=== PATIENT | male | born 1945 | race Caucasian/White ===

== ENCOUNTER 2019-07-23 00:07 | Inpatient (IN) | payer MEDICARE, OTHER ==
[~2019-07-23] VITALS: Ht 177.8 cm; Wt 79.4 kg
[2019-07-23] VITALS (66 sets, daily range): BP systolic 71–142; BP diastolic 43–80
--- NOTE | 2019-07-23 00:07 | NUR ---
Respiratory Therapist at bedside for respiratory intervention.
--- NOTE | 2019-07-23 00:07 | NUR ---
PT [facility]. TAKEN TO BED 1
--- NOTE | 2019-07-23 00:10 | NUR ---
PT CAME IN TO ER WITH C/O SOB/ RESPRIATORY DISTRESS. PER EMS. EMS HAD PT ON BPAP IN ROUTE SATURATION AT 80 PERCENT. PT WAS NOT ABLE TO ANSWER QUESTIONS, RESPONDS TO PAIN. PT HAS A HX COPD. PER EMS, PT HAD AN ON GOING COUGH. NO FEVER AT THIS TIME, 98.7 RECTAL. PER EMS, PT LOSS ALL BOWEL CONTROL IN ROUTE. ERMD MADE AWARE OF STATUS, SAFETY MEASURES IN PLACE, ISOLATION PRECAUTIONS IN PLACE. WILL CONTINUE TO MONITOR.
[2019-07-23] MEDS ORDERED: INTUBATION KIT MC ONE (00:13)
[2019-07-23] MEDS ORDERED: PROPOFOL 1000 MG/100 ML PREMIX 100 ML IV ONE ×2 (00:17→03:20)
--- NOTE | 2019-07-23 00:30 | NUR ---
Dr. Toth speaking with patient son in [facility].
--- NOTE | 2019-07-23 00:40 | NUR ---
PT INTUBATED BY ERMD, RT, RN AND EMT ASSIST. PT VSS.
[2019-07-23] MEDS ORDERED: MAG SULF 2000 MG/WATER PREMIX 50 ML IV ONE (00:45)
[2019-07-23] MEDS ORDERED: LEVOFLOXACIN 750 MG/D5W PREMIX 150 ML IV ONE (00:45)
[2019-07-23] MEDS ORDERED: NACL 0.9% 2,500 ML IV ONE (00:45)
[2019-07-23] MEDS ORDERED: ETOMIDATE 20 MG/10 ML VIAL IVP ONE (00:45)
[2019-07-23] MEDS ORDERED: methylPREDNISolone SS 125 MG in WATER STERILE 2 ML IV ONE (00:45)
--- NOTE | 2019-07-23 01:10 | NUR ---
URINE AND BLOOD SPECIMENS DONE. FLU SWAB DONE. SENT TO LAB
[2019-07-23] MEDS ORDERED: WATER STERILE 10 ML MC ONE (01:11)
[2019-07-23] MEDS ORDERED: methylPREDNISolone SS 125 MG/2 ML VIAL ONE (01:11)
[2019-07-23 01:14] LABS: BASOPHILS # (AUTO) 0.1 K/uL (0.00-0.22); BASOPHILS % (AUTO) 0.6 % (0.0-2.0); EOSINOPHILS # (AUTO) 0.8 K/uL (0-0.4); EOSINOPHILS % (AUTO) 4.9 % (0.0-4.0); HEMATOCRIT 46.8 % (36-52); HEMOGLOBIN 15.4 g/dL (12.0-18.0); LYMPHOCYTES # (AUTO) 6.3 K/uL (2.0-11.5); LYMPHOCYTES % (AUTO) 41.2 % (20.5-51.1); MEAN CORPUSCULAR HEMOGLOBIN 31 pg (27-31); MEAN CORPUSCULAR HGB CONC 33 g/dL (33-37); MEAN CORPUSCULAR VOLUME 94.8 fL (80-94); MONOCYTES # (AUTO) 0.9 K/uL (0.8-1.0); MONOCYTES % (AUTO) 5.7 % (1.7-9.3); NEUTROPHILS # (AUTO) 7.2 K/uL (1.8-7.7); NEUTROPHILS % (AUTO) 47.6 % (42.2-75.2); PLATELET COUNT (AUTO) 266 K/uL (140-450); RED BLOOD CELL COUNT(AUTO) 4.94 MIL/uL (4.20-6.10); RED CELL DISTRIBUTION WIDTH 13.4 % (11.6-13.7); WHITE BLOOD COUNT (AUTO) 15.3 K/uL (4.8-10.8)
[2019-07-23 01:15] LABS: APPEARANCE,URINE CLEAR (CLEAR); BILIRUBIN,URINE NEGATIVE (NEGATIVE); BLOOD, URINE NEGATIVE (NEGATIVE); COLOR,URINE YELLOW (YELLOW); LEUKOCYTE ESTERASE ,URINE NEGATIVE (NEGATIVE); NITRITE, URINE POSITIVE (NEGATIVE); PH,URINE 6.5 (5.0-9.0); UGLUCOSE 1+ (NEGATIVE)
[2019-07-23] MEDS ORDERED: HYDROXYCHLOROQUINE 200 MG TAB PO ONE (01:25)
[2019-07-23] MEDS ORDERED: AZITHROMYCIN 500 MG in DEXTROSE 5% 250 ML IV ONE (01:25)
[2019-07-23 01:29] LABS: ALBUMIN 3.4 g/dL (3.4-5.0); ANION GAP 17.4 (8-16); ASPARTATE AMINOTRANSFERASE 61 U/L (15-37); CARBON DIOXIDE 24.1 mmol/L (21-32); CHLORIDE 106 mmol/L (98-107); CREATININE 1.5 mg/dL (0.6-1.3); GLUCOSE 238 mg/dL (74-106); POTASSIUM 3.5 mmol/L (3.5-5.1); SODIUM SERUM 144 mmol/L (136-145); TOTAL BILIRUBIN 0.4 mg/dL (0.0-1.0); UREA NITROGEN, BLOOD 14 mg/dL (7-18)
[2019-07-23 01:34] LABS: PROTHROMBIN TIME 10.2 secs (10.8-13.4)
[2019-07-23 01:35] LABS: RBC,URINE 0-5 /HPF (0-5); WBC,URINE 0-5 /HPF (0-5)
--- NOTE | 2019-07-23 02:28 | NUR ---
SPOKE TO MOSHE, SON OF PT, CONTACT INFO IS [phone]
[2019-07-23] MEDS ORDERED: AZITHROMYCIN 500 MG INJ VIAL IV ONE (03:00)
--- NOTE | 2019-07-23 03:20 | NUR ---
NGT INSERTED TO RIGHT NARE, AIR CHECK CONFIRMED, XRAY TO CONFIRM PLACEMENT. ERMD, AT BEDSIDE, CONFIRMED OK TO USE. ORDERED PO MEDS GIVEN. PT TOLERATED WELL, NO ADVERSE REACTIONS.
[2019-07-23] MEDS ORDERED: ACETAMINOPHEN 325 MG TAB PO PRN (03:45)
[2019-07-23] MEDS ORDERED: MORPHINE SULFATE 2 MG/ML SYR IVP PRN (03:45)
[2019-07-23] MEDS ORDERED: DOCUSATE SODIUM 100 MG GELCAP PO PRN (03:45)
[2019-07-23] MEDS ORDERED: ONDANSETRON 4 MG/2 ML VIAL IM/IVP PRN (03:45)
[2019-07-23] MEDS ORDERED: PROPOFOL 200 MG/20 ML VIAL IV ONE ×2 (03:55→04:00)
[2019-07-23] MEDS ORDERED: NACL 0.9% 1,500 ML IV ONE (04:00)
--- NOTE | 2019-07-23 04:20 | NUR ---
PT WAS SWABED FOR COVID, SENT TO LAB
[2019-07-23] MEDS ORDERED: NOREPINEPHRINE 4 MG/4 ML VIAL IV ONE (04:27)
[2019-07-23] MEDS ORDERED: DEXTROSE 50% 50 ML SYR IVP PRN (04:30)
--- NOTE | 2019-07-23 04:39 | NUR ---
Dr. Toth at patient bedside.
--- NOTE | 2019-07-23 04:42 | NUR ---
LAB DRAWN FOR LACTIC ACID, PTS BLOOD PRESSURE STARTING TO DECREASE. CHANGED CUFF, CHANGED SITE, BP STILL LOW. 2L IV BOLUS INFUSING, UNABLE TO READ SATURATIONS.ER MD AWARE, LEVOPHED PRESSOR STARTED. ERMD AT BEDSIDE TO START CENTRAL LINE INSERTION. PROPOFOL AND LEVOPHED INFUSING, ETT TO VENT, SATURATIONS 100%. ATTEMPTED CENTRAL LINE 2X, EXCESS ATHERSCELOROSIS, SUCCESSFULLY INSERTED @ RIGHT SUBCLAVIAN. GOOD BLOOD RETURN AT BROWN [place] ONLY, OTHER LUMENS ABLE TO FLUSH. XRAY AT BEDSIDE TO CONFIRM PLACEMENT, ERMD TO EXAMINE, CONFIRMED OK TO USE BROWN [place] ONLY. ALL SAFETY PRECAUTIONS MET THROUGHOUT PROCEDURES, PT TOLERATED WELL. HOB 30 DEGREES, SIDERAILS UPx2, BED LOCKED AND IN LOWEST POSITION. CONNECTED TO MONITOR. BP STABLE, HR-ST.
[2019-07-23 04:53] LABS: CHOL/HDL RATIO 4.2 (1-4.5); MAGNESIUM 2.4 mg/dL (1.8-2.4); PHOSPHORUS 6.3 mg/dL (2.5-4.9); THYROID STIMULATING HORMONE 3.81 uIU/mL (0.34-3.74)
--- NOTE | 2019-07-23 05:05 | NUR ---
DARREN FROM LAB CALLED, ABNORMAL TROPONIN 0.082. DR. CARUSO MADE AWARE
--- NOTE | 2019-07-23 05:30 | NUR ---
COVID SWAB COLLECTED AND SENT TO LAB.
--- NOTE | 2019-07-23 06:20 | NUR ---
Patient will be admitted to care of CUSTOMER RESPONSE REPRESENTATIVE . Admitted to ICU with .Will go to room ICU 1. Belongings list completed. Report to NIYAH MOSER. PT ON LEVOPHED DRIP, AND PROPOFOL, RASS -3. DRY WEIGHT USED 90KG. BLOOD PRESSURE STABLE-111/67, ST ON MONITOR-HR 115 BPM, RR 20, SATURATIONS 100%. ETT TO VENT ACVC 12, FI02 80%, TV 450, PEEP 5. HALE IN PLACE, CENTRAL LINE TO RIGHT SUBCLAVIAN, NGT TO RIGHT NARE, CLAMPED. ALL SAFETY MEASURES IN PLACE. TRANSFERRED WITH RT AND AMBUBAG AND 2 RN's. TRANSFERRED TO ICU BED 1 WITHOUT INCIDENT.
[2019-07-23] MEDS ORDERED: ALBUTEROL HFA MDI 90 MCG/ACTUATION 8 GM INH PRN (06:30)
--- NOTE | 2019-07-23 06:30 | NUR ---
PT ADMITTED FROM ER, SEDATED, WITH ETT TO VENT, NO SIGNS OF ACUTE DISTRESS, SKIN IS INTACT WARM AND DRY, HALE CATHETER INTACT AND PATENT WITH CLEAR YELLOW URINE, NGT IN PLACE, NOTED RIGHT UPPER CHEST CENTRAL LINE WITH 2 PERIPHERAL LINES ON BILATERAL ARMS. PT ON PROPOFOL DRIP AND LEVOPHED DRIP ORDERED. TURNED AND REPOSITION, SAFETY AND AIRBORNE PRECAUTIONS MAINTAINED. CALL LIGHT WITHIN REACH.
[2019-07-23] MEDS ORDERED: ASPI-1822 PO (07:21)
[2019-07-23] MEDS ORDERED: NOV7030 SUBQ (07:21)
[2019-07-23] MEDS ORDERED: METF500T2 PO (07:21)
[2019-07-23] MEDS ORDERED: [UNRECOGNIZED DRUG - CODE] PO (07:21)
[2019-07-23] MEDS ORDERED: ERGO400T3 PO (07:21)
[2019-07-23] MEDS ORDERED: PSYL660P5 PO (07:21)
--- NOTE | 2019-07-23 07:26 | NUR ---
ENDORSED TO ONCOMING DAY SHIFT NURSE ANTOINETTE LINDER FOR CONTINUITY OF CARE.
[2019-07-23] MEDS ORDERED: BUDESONIDE 0.5 MG/2 ML NEBU INH SCH (07:30)
[2019-07-23] MEDS: BLOOD GLUCOSE MONITORING 1 DEV DEV FS SCH ×4 (07:30→21:10)
--- NOTE | 2019-07-23 07:30 | NUR ---
RECEIVED REPORT FROM APPRENTICE LINEMAN THIRD STEP RN. PT IS SEDATED, RASS -3, AFEBRILE. SINUS TACHYCARDIA ON MONITOR. S1 S2 HEARD. ETT TO VENT A/V VC FIO2 60%, VT 450, RR 12, PEEP 5. BREATHING EVEN AND UNLABORED. NGT IN PLACE, PLACEMENT CONFIRMED. ABDOMEN SOFT, NONTENDER, WITH ACTIVE BOWEL SOUNDS. CENTRAL LINE TO RIGHT SUBCLAVIAN, PERIPHERAL IVS G 20 TO LEFT AND RIGHT FOREARM IN PLACE, RUNNING PROPOFOL DRIP AT 35 MCG/KG/MIN, LEVOPHED AT 12 MCG/MIN. DRY WEIGHT [address] IN PL[address] DRAINING YELLOW URINE TO GRAVITY. SKIN IS INTACT, DRY AND WARM TO TOUCH. HOB AT 30 DEGREES. BED IN LOWEST POSITION LOCKED. CALL LIGHT WITHIN REACH. SAFETY PRECAUTIONS IN PLACE. WILL CONTINUE TO MONITOR. Addendum: 07/23/19 at 1227 by Argelia Dickey RN DRY WEIGHT 80 KG
--- NOTE | 2019-07-23 07:41 | NUR ---
RECEIVED INTUBATED PT 7.5 ETT SECURED @23 TEETH/GUM ON VENT. SETTINGS AC 12, VT 450, PEEP 5 AND FIO2 80%. FIO2 THEN DECREASED TO 60%. PT NOT IN ANY DISTRESS AT THIS TIME. AIRWAY IS SECURE AND PATENT. VENT IS PLUGGED INTO A RED OUTLET WITH ALARMS ON AND FUNCTIONING. WILL CONTINUE TO MONITOR.
[2019-07-23] MEDS ORDERED: INSU3SUS16 SC (08:23)
[2019-07-23] MEDS: fentaNYL 1 MG in NACL 0.9% 80 ML IV PRN ×2 (08:40→17:11)
--- NOTE | 2019-07-23 08:51 | NUR ---
PATIENT HAS BEEN SCREENED AND CATEGORIZED HIGH NUTRITION RISK. PATIENT WILL BE SEEN WITHIN 1-2 DAYS OF ADMISSION. 07/23/19-07/24/[address]
[2019-07-23] MEDS ORDERED: HYDROXYCHLOROQUINE 200 MG TAB NG SCH (09:00)
[2019-07-23] MEDS ORDERED: CALCIUM CARB/VIT-D 500 MG/200 IU 1 TAB NG SCH (09:00)
[2019-07-23] MEDS ORDERED: PANTOPRAZOLE 40 MG INJ VIAL IVP SCH (09:00)
[2019-07-23] MEDS ORDERED: ASPIRIN 81 MG TAB.CHEW NG SCH (09:00)
[2019-07-23] MEDS: INSULIN LISPRO SLIDING SCALE 100 UNITS/ML VIAL SUBQ PRN ×4 (09:04→21:21)
[2019-07-23] MEDS ORDERED: MIDAZOLAM MDV 50 MG in NACL 0.9% 40 ML IV PRN (09:25)
[2019-07-23] MEDS: DEXT 5% / NACL 0.45% 1,000 ML IV SCH ×2 (10:19→13:00)
--- NOTE | 2019-07-23 11:25 | NUR ---
FIO2 INCREASED TO 65% DUE TO SPO2 89%. WILL CONTINUE TO MONITOR.
[2019-07-23] MEDS ORDERED: hePARIN / DEXT 5% PREMIX 250 ML IV SCH ×2 (11:35→11:50)
[2019-07-23] MEDS ORDERED: HEPARIN PER PHARMACY MC PRN (11:35)
--- NOTE | 2019-07-23 11:51 | NUR ---
CENTRAL LINE LIJ INSERTED BY DR. RAMOS AT BEDSIDE.
--- NOTE | 2019-07-23 13:14 | NUR ---
Tobacco Checkout Clerk Note: Basic Screen: Yes High Risk DC Screen [place]: MOSHE SHORE Home Relationship: SON Pre-Admission Living Arrangements: Lives with Other Prior ADL Independent Current Home Health Name/Tel: N/A Current DME/02 Name/Tel: N/A Current Hospice Name/Tel: N/A Current Dialysis Name/Tel: N/A Healthcare Decision Maker: Patient Advance Directive No Physician Orders for Life Sustaining Treatment Form No Patient/Family Have Educational Needs No Information Taught: Advance Directive Person Taught: Children Teaching Tools: Verbal Factors Affecting Learning: None Participation Level: Refused Evaluation: Verbalizes Understanding Needs Additional Education: No Discipline: Case Mgt/Social Svcs Tentative Discharge Plan/Destination: No Needs Identified Will require assistance post discharge: No Referred to Horse Racing Manager: No Tentative Discharge Plan Summary: Patient is a 74-year-old male admitted for chronic obstructive pulmo. Patient has PMHX of COPD and diabetes. Patient was admitted from home where he lives with his . SW contacted son, Moshe Shore [phone] to verify demographics. Per Moshe, patient has no hsitory of mental health and no history of substance abuse. Moshe stated that patient is independent with ADLs and all his needs are met. Tentative discharge plan is for patient to return home. No further needs identified. Signature: Vicente Bowens. TOOL REPAIRER BENCH Date: Jul 23, 2019 Time: 13:13
--- NOTE | 2019-07-23 13:44 | NUR ---
DR. BROWN MADE AWARE OF ABNORMAL EKG RHYTHM. WILL FOLLOW UP ON ORDERS.
--- NOTE | 2019-07-23 13:59 | NUR ---
FIO2 INCREASED TO 70% DUE TO SPO2 86%. PT NOT IN ANY DISTRESS SPO2 INCREASED TO 90%. WILL CONTINUE TO MONITOR. NURSE AWARE OF CHANGE.
[2019-07-23] MEDS ORDERED: NACL 0.9% 250 ML IV SCH (14:20)
[2019-07-23] MEDS: NOREPINEPHRINE 4 MG in DEXTROSE 5% 250 ML IV PRN ×2 (14:24→18:24)
--- NOTE | 2019-07-23 15:17 | NUR ---
07/23/19 RD INITIAL ASSESSMENT COMPLETED PLEASE REFER TO NUTRITION ASSESSMENT UNDER CARE ACTIVITY FOR ESTIMATED NUTRITIONAL NEEDS. 1. CONTINUE NPO MEDICALLY APPROPRIATE 2. IF/WHEN PT IS STABLE CONSIDER TROPHIC TUBE FEEDING WITH VITAL AF 1.2 @ 15 ML/HR AND GRADUALLY INCREASE BY 15 ML/HR Q12H, GOAL 65 ML/HR -THIS WILL PROVIDE 1560 ML OF VOLUME, 1872 KCAL AND 117 GM OF PROTEIN, MEETING 100% OF ESTIMATED ENERGY NEEDS 3. IF PATIENT IS EXTUBATED CONSIDER SWALLOW EVALUATION FOR PO DIET 4. RD TO FOLLOW-UP 2-3 DAYS, HIGH RISK CONSTANTINE KAHN RD
[2019-07-23] MEDS ORDERED: VASOPRESSIN 20 UNITS in NACL 0.9% 250 ML IV PRN (15:50)
--- NOTE | 2019-07-23 15:57 | NUR ---
DC PLANN[age] YRS OLD MALE PATIENT WAS ADMITTED FROM HOME WITH A DX OF COPD EXACERBATION, RESP FAILURE ,SEPSIS ,PNA AND R/O COVID. PT HAS A HX OF COPD ,DM, AORTIC ATHEROSCLEROSIS , AND DIABETIC NEUROPATHY.PT IS INTUBATED AND SEDATED. VENT SETTING FIO2 80% VT 450, RR12 PEEP 5 CXRAY SHOWED INCREASING LEFT LOWER LOBE INFILTRATE/ ATELECTASIS RT LOWER LOBE INFILTRATE UNCHANGED . COVID, SPUTUM AND BLOOD CULTURE PENDING. STARTED ON IV ROCEPHIN, IV AZITHROMYCIN AND IV LEVAQUIN , RT PROTOCOL WITH BREATHING TREATMENT AND ALBUTEROL MDI CORTICOSTEROIDS AND IV SOLU-MEDROL CONSULTED WITH ID DR PATEL AND PULMO DR ULRICH . DC PLAN AWAITING FOR COVID RESULT. POST STABILIZATION FORM SENT TO CENTER POINT [phone]. MH TO FOLLOW
--- NOTE | 2019-07-23 16:03 | NUR ---
FIO2 TITRATED TO 65%. WILL CONTINUE TO MONITOR.
--- NOTE | 2019-07-23 17:51 | NUR ---
PT NOT IN ANY DISTRESS AT THIS TIME. PT REMAINS ON DOCUMENTED VENT SETTINGS. ETT IS SECURE WITH A PATENT AIRWAY.VENT ALARMS ON AND FUNCTIONING.
--- NOTE | 2019-07-23 19:20 | NUR ---
REPORT GIVEN TO CRIME SPECIALIST RN FOR CONTINUITY OF CARE. NO S/SX OF ACUTE DISTRESS NOTED AT THIS TIME.
--- NOTE | 2019-07-23 19:30 | NUR ---
RECEIVED CHANGE OF SHIFT REPORT FROM DAY SHIFT NURSE. PT IS UNRESPONSIVE TO TOUCH. EYES SLUGGISH 3MM. SKIN DIAPHORETIC. PT IS INTUBATED W/ VENT SETTING TO A/C VC FIO2 65% VT 450 RATE 12 PEEP 5. LUNG SOUNDS ARE CLEAR THROUGHOUT ALL LOBES. +1 RADIAL PULSES FELT. S1S2 HEARD. CAP REFILL >3 SECONDS. PT IS SEDATED W/ FENTANYL 0.5 MCG/KG/HR AND VERSED 2MG/ML. DRY WEIGHT USED WAS 80 KG. LEVOPHED DRIP IS RUNNING AT 22 MCG/MIN TO MAINTAIN SBP >90. HEPARIN IS RUNNING 1300 UNIT/HR. PT HAS RIGHT SUBCLAVIAN AND LEFT IJ . DRESSING IS DCI. PT HSA LEFT AC 20G AND RIGHT FOREARM 20G. BOTH ARE SALINE LOCKED, ASYMPTOMATIC, PATENT, AND INTACT. HALE CATHETER NOTED. NGT OF THE RIGHT NARE. PT IS NPO. BED IS LOCKED IN SEMI FOWLERS POSITION. SAFETY MEASURES IN PLACE. WILL CONTINUE TO MONITOR.
--- NOTE | 2019-07-23 20:50 | NUR ---
RECEIVED PATIENT FROM AM SHIFT. PATIENT IS INTUBATED WITH ETT SIZE 7.5 AND SECURED WITH ANCHOR-FAST AT 23CM @ THE TEETH. PATIENT IS ON VENT SETTINGS: RR 12, VT 450, PEEP 5, AND FiO2 65%. FiO2 TITRATED TO 60% WITH SPO2 OF 94%. VENT PLUGGED IN RED OUTLET, ALARMS SET AND AUDIBLE, BVM AT BEDSIDE, AND HOB > 30 DEGREES. PATIENT IS IN NO APPARENT RESPIRATORY DISTRESS AT THIS TIME. CLEAR BILATERAL BREATH SOUNDS ON AUSCULTATION. PRN TX NOT INDICATED AT THIS MOMENT. SUCTION SMALL AMOUNT OF PINK TINGE SECRETIONS FROM THE ETT AND SENT TO LAB. WILL CONTINUE TO MONITOR PATIENT.
[2019-07-23] MEDS ORDERED: HYDROXYCHLOROQUINE 200 MG TAB PO SCH (21:00)
--- NOTE | 2019-07-23 21:55 | NUR ---
HEPARIN STOPPED DUE TO PTT >150. Addendum: 07/24/19 at 0347 by Logan Bravo RN RN HEPARIN HELD, NOT STOPPED DUE TO PROTOCOL
[2019-07-24] VITALS (9 sets, daily range): BP systolic 88–154; BP diastolic 47–71
--- NOTE | 2019-07-24 00:15 | NUR ---
PT SEDATED W/ FENTANYL 0.5 MCG/KG/HR AND VERSED 2MG/ML FOR RASS -3. DRY WEIGHT 80KG. PT IS NOT AROUSABLE TO TOUCH. RESTRAINTS WERE RELEASED DUE TO PT SEDATION. SKIN UNDERNEATH IS INTACT, NO SIGNS OF INJURY. RADIAL PULSES ARE +1. CAP REFILL >3 SECONDS. RIGHT SUBCLAVIAN WAS DISCONTINUED PER ORDERS. BLEEDING CONTROLLED. BED LOCKED IN LOW POSITION. HOB 30 DEGREES. SAFETY MEASURES IN PLACE. WILL CONTINUE TO MONITOR.
[2019-07-24] MEDS ORDERED: AZITHROMYCIN 500 MG in DEXTROSE 5% 250 ML IV SCH (01:00)
--- NOTE | 2019-07-24 02:20 | NUR ---
INITIATED CHEST COMPRESSIONS, CALLED CODE BLUE. INITIATED EMERGENCY MEDICATIONS.
--- NOTE | 2019-07-24 02:33 | NUR ---
DR. CARUSO PRONOUNCED PT [phone]
--- NOTE | 2019-07-24 03:25 | NUR ---
[facility] CALLED. NO DONATION WILL BE MADE DUE TO SUSPECTED COVID-19 REFERENCE: [id number].
--- NOTE | 2019-07-24 04:14 | NUR ---
CLEANER AND POLISHER RESIDENTIAL THERAPIST MOE DOE CALLED AND RELEASED THE BODY. NO CASE NUMBER.
[2019-07-24] MEDS ORDERED: methylPREDNISolone SS 125 MG/2 ML VIAL IVP SCH (05:00)
--- NOTE | 2019-07-24 07:21 | NUR ---
MARY GAMA OUTSIDE OF ROOM
--- NOTE | 2019-07-24 07:35 | NUR ---
MARY GAMA REFUSED TO TAKE BODY DUE TO SUSPECTED COVID. CHARGE NURSE AND SHINGLE WEAVER MADE AWARE
[2019-07-24] MEDS ORDERED: metFORMIN 500 MG TAB NG SCH (08:00)
--- NOTE | 2019-07-24 13:15 | NUR ---
THE BODY PICKED UP BY MARY GAMA WITH OUT ANY COMPLICATION.
--- NOTE | 2019-07-24 13:50 | NUR ---
Late entry. Confirmed with RN that 0.9 NS IV ended at 0630
[2019-07-25] MEDS ORDERED: methylPREDNISolone SS 40 MG/ML VIAL IVP SCH (05:00)
[2019-07-26] MEDS ORDERED: methylPREDNISolone SS 40 MG/ML VIAL IVP SCH (09:00)
== END 2019-07-24 13:30 | disposition expired | DRG 871 ==
LOC: MED 00:07 → MIC 03:51 → EEVIPCON 03:51
PROVIDERS: ADMIT General Practice; ATTEND General Practice
PROC: 5A1935Z Respiratory Ventilation, Less than 24 Consecutive Hours (ICD-10-PCS; principal; 2019-07-23)
PROC: 5A09357 Assistance with Respiratory Ventilation, Less than 24 Consecutive Hours, Continuous Positive Airway Pressure (ICD-10-PCS; 2019-07-23)
PROC: 0BH17EZ Insertion of Endotracheal Airway into Trachea, Via Natural or Artificial Opening (ICD-10-PCS; 2019-07-23)
PROC: 02HV33Z Insertion of Infusion Device into Superior Vena Cava, Percutaneous Approach (ICD-10-PCS; 2019-07-23)
PROC: B548ZZA Ultrasonography of Superior Vena Cava, Guidance (ICD-10-PCS; 2019-07-23)
PROC: 05HM33Z Insertion of Infusion Device into Right Internal Jugular Vein, Percutaneous Approach (ICD-10-PCS; 2019-07-23)
DX: A41.9 Sepsis, unspecified organism (principal); J18.9 Pneumonia, unspecified organism; R65.21 Severe sepsis with septic shock; J96.01 Acute respiratory failure with hypoxia; N17.0 Acute kidney failure with tubular necrosis; I21.A1 Myocardial infarction type 2; N39.0 Urinary tract infection, site not specified; J44.0 Chronic obstructive pulmonary disease with (acute) lower respiratory infection; J44.1 Chronic obstructive pulmonary disease with (acute) exacerbation; Z68.25 Body mass index [BMI] 25.0-25.9, adult; Z88.0 Allergy status to penicillin; E66.9 Obesity, unspecified; Z03.818 Encounter for observation for suspected exposure to other biological agents ruled out; M81.0 Age-related osteoporosis without current pathological fracture; F17.210 Nicotine dependence, cigarettes, uncomplicated; E78.5 Hyperlipidemia, unspecified; I46.9 Cardiac arrest, cause unspecified; N40.0 Benign prostatic hyperplasia without lower urinary tract symptoms; E11.42 Type 2 diabetes mellitus with diabetic polyneuropathy; E11.69 Type 2 diabetes mellitus with other specified complication; E11.3299 Type 2 diabetes mellitus with mild nonproliferative diabetic retinopathy without macular edema, unspecified eye; E83.39 Other disorders of phosphorus metabolism
CPT/HCPCS: 31500; 36415; 36556; 36600; 71045; 80053; 81001; 82533; 82803; 82948; 83036; 83605; 83690; 83735; 83880; 84100; 84443; 84484; 85025; 85379; 85610; 85730; 87040; 87070; 87081; 87086; 87186; 87205; 87804; 93005; 94002; 96361; 96365; 96368; 96375; 99291; C1751; C9113; J0456; J0696; J1644; J1956; J2250; J2704; J2930; J3010; J3475; J3490; J7030; J7060; Q0092; U0002